=== PATIENT | male | born 1995 | race African-American/Black ===

== ENCOUNTER 2025-05-13 12:42 | Emergency (ER) | payer OTHER ==
[~2025-05-13] VITALS: Ht 190.5 cm; Wt 90.3 kg
[2025-05-13 12:45] VITALS: TEMP 98
[2025-05-13 13:56] VITALS: BP 141/83; O2SAT 99
== END 2025-05-13 13:57 | disposition home or self-care (01) ==
LOC: M ED 12:42
DX: M25.512 Pain in left shoulder (principal)